=== PATIENT | male | born 1945 | race Caucasian/White ===

== ENCOUNTER 2020-01-27 09:23 | Day surgery (SDC) | payer MEDICARE ==
[2020-01-26 15:51] LABS: BASOPHILS % (AUTO) 0.6 % (0-1); EOSINOPHILS # (AUTO) 0.1 X10'3 (0-0.9); EOSINOPHILS % (AUTO) 2.1 % (0-6); HEMATOCRIT 44.9 % (42.0-52.0); HEMOGLOBIN 14.9 g/dl (14.0-17.9); LYMPHOCYTES # (AUTO) 2.2 X10'3 (1.1-4.8); LYMPHOCYTES % (AUTO) 34.6 % (21-51); MEAN CORPUSCULAR HEMOGLOBIN 30.7 PG (27.0-31.0); MEAN CORPUSCULAR HGB CONC 33.3 g/dL (33.0-36.5); MEAN CORPUSCULAR VOLUME 92.3 FL (78-98); MEAN PLATELET VOLUME 9.4 FL (7.4-10.4); MONOCYTES # (AUTO) 0.7 X10'3 (0-0.9); MONOCYTES % (AUTO) 10.6 % (2-12); NEUTROPHILS # (AUTO) 3.3 X10'3 (1.8-7.7); NEUTROPHILS % (AUTO) 52.1 % (42-75); PLATELET COUNT 177 X10'3 (140-440); RED BLOOD COUNT 4.86 X10'6 (4.70-6.10); RED CELL DISTRIBUTION WIDTH 13.7 % (11.5-14.5); WHITE BLOOD COUNT 6.3 X10'3 (4.5-11.0)
[2020-01-26 15:57] LABS: ALBUMIN 3.8 G/DL (3.4-5.0); ANION GAP 8 (8-16); BLOOD UREA NITROGEN 23 MG/DL (7-18); CALCIUM 9.3 MG/DL (8.5-10.1); CHLORIDE 107 MMOL/L (99-107); CREATININE 1.53 MG/DL (0.60-1.10); GLUCOSE 190 MG/DL (70-104); POTASSIUM 4.2 MMOL/L (3.5-5.1); SODIUM 144 MMOL/L (135-145); TOTAL CARBON DIOXIDE 28.6 MMOL/L (24-32); eGFR 45 ML/MIN
[2020-01-26 16:03] LABS: PARTIAL THROMBOPLASTIN TIME 29 SECONDS (22-32)
[~2020-01-27] VITALS: Ht 175.3 cm; Wt 96.3 kg
[2020-01-27] VITALS (12 sets, daily range): BP systolic 108–127; BP diastolic 63–80
[~2020-01-27 09:23] MED LIST: ASPI-611 PO; CARV-50 PO; DICL-194 PO; LANTUS SQ; LISI-643 PO; METF500T PO; ROSU20TA2 PO
[2020-01-27] MEDS ORDERED: acetylcysteine 200 MG/ml 4ml vial PO PRN (09:48)
[2020-01-27] MEDS ORDERED: normal saline 1,000 ML IV SCH (09:50)
[2020-01-27] MEDS ORDERED: diphenhydrAMINE 25mg capsule PO PRN (09:50)
[2020-01-27] MEDS ORDERED: CARV6.253 PO (10:12)
[2020-01-27] MEDS ORDERED: ATOR80TA PO (10:12)
[2020-01-27] MEDS ORDERED: APIX5TAB3 PO (10:12)
[2020-01-27] MEDS ORDERED: midazolam 2 mg/2 ml injection ONE (10:25)
[2020-01-27] MEDS ORDERED: heparin 1,000 UNITS/NS 500ml 500 ML ONE (10:26)
[2020-01-27] MEDS ORDERED: fentaNYL/PF 50MCG/1 ML 2ML syringe ONE (10:26)
[2020-01-27] MEDS ORDERED: iohexol 350MG/ML 100ml bottle IV ONE (10:26)
[2020-01-27] MEDS ORDERED: LIDOcaine 1% (10mg/ml)w/preservative injection 20ml MDV ONE (10:26)
[2020-01-27] MEDS ORDERED: nitroGLYCERIN-Tridil 50MG/D5W 250 ML IV ONE (10:26)
[2020-01-27] MEDS ORDERED: iohexol 350 MG/ML 50ML vial IV ONE ×2 (10:26→11:31)
[2020-01-27] MEDS ORDERED: heparin 1,000unit/ml 10ml vial 10 ML ONE (10:32)
[2020-01-27] MEDS ORDERED: HYDROcodone/acetaminophen 10/325mg tab PO PRN (12:10)
[2020-01-27] MEDS ORDERED: HYDROcodone/acetaminophen 5mg/325mg tablet PO PRN (12:10)
== END 2020-01-27 18:05 | disposition home or self-care (01) ==
LOC: SSTAY O 09:23
PROVIDERS: ATTEND Internal Medicine Cardiovascular Disease
DX: R94.39 Abnormal result of other cardiovascular function study (principal); T82.858A Stenosis of other vascular prosthetic devices, implants and grafts, initial encounter; I25.10 Atherosclerotic heart disease of native coronary artery without angina pectoris; I25.82 Chronic total occlusion of coronary artery; E11.9 Type 2 diabetes mellitus without complications; I10 Essential (primary) hypertension; E78.5 Hyperlipidemia, unspecified; I48.0 Paroxysmal atrial fibrillation; J44.9 Chronic obstructive pulmonary disease, unspecified; E66.9 Obesity, unspecified; Z68.30 Body mass index [BMI] 30.0-30.9, adult; F17.210 Nicotine dependence, cigarettes, uncomplicated; Z95.5 Presence of coronary angioplasty implant and graft; Z79.01 Long term (current) use of anticoagulants; Z79.82 Long term (current) use of aspirin; Z79.899 Other long term (current) drug therapy; Z98.890 Other specified postprocedural states; Z72.89 Other problems related to lifestyle; Z88.8 Allergy status to other drugs, medicaments and biological substances; Z82.49 Family history of ischemic heart disease and other diseases of the circulatory system; Z83.3 Family history of diabetes mellitus; Y83.8 Other surgical procedures as the cause of abnormal reaction of the patient, or of later complication, without mention of misadventure at the time of the procedure; Y92.89 Other specified places as the place of occurrence of the external cause
CPT/HCPCS: 36415; 76937; 80048; 82948; 85025; 85610; 85730; 93005; 93459; 99152; 99153; C1769; C1894; J1644; J2001; J2250; J3010; J7030; Q0163; Q9967; A4620; A6258; C1760; J3490

== ENCOUNTER 2022-03-01 14:29 | Outpatient (CLI) | payer OTHER ==
[~2022-03-01 14:29] MED LIST changes: +APIX5TAB3 PO; +ATOR80TA PO; -CARV-50 PO; +CARV6.253 PO; -DICL-194 PO; -METF500T PO; -ROSU20TA2 PO
== END 2022-03-01 23:59 | disposition home or self-care (01) ==
LOC: CARD DIAG 14:29
PROVIDERS: ATTEND Internal Medicine Cardiovascular Disease
DX: I08.1 Rheumatic disorders of both mitral and tricuspid valves (principal); I48.91 Unspecified atrial fibrillation; Z95.1 Presence of aortocoronary bypass graft; Z95.5 Presence of coronary angioplasty implant and graft
CPT/HCPCS: 93306

== ENCOUNTER 2023-01-04 08:05 | Day surgery (SDC) | payer OTHER ==
[~2023-01-04] VITALS: Ht 172.7 cm; Wt 93.6 kg
[2023-01-04] VITALS (9 sets, daily range): BP systolic 87–118; BP diastolic 48–60
[2023-01-04] MEDS ORDERED: MIDAZolam 1mg/ml 10ml vial IV ONE (08:25)
[2023-01-04] MEDS ORDERED: amiodarone 150mg/dext, iso-os 100 ML IV ONE (08:25)
[2023-01-04] MEDS ORDERED: atropine 0.1mg/ml 10ml syringe IV ONE (08:25)
[2023-01-04] MEDS ORDERED: diphenhydrAMINE 25mg capsule PO ONE (08:25)
[2023-01-04] MEDS ORDERED: LORazepam 0.5 MG tablet PO ONE (08:25)
[2023-01-04] MEDS ORDERED: normal saline 1000ml 1,000 ML IV SCH (08:25)
[2023-01-04] MEDS ORDERED: morphine 10mg/ml inj. IV ONE (08:25)
[2023-01-04] MEDS ORDERED: FURO40TA4 PO (08:39)
[2023-01-04] MEDS ORDERED: METF-900 PO (08:39)
[2023-01-04] MEDS ORDERED: WARF2.5T82 PO (08:39)
[2023-01-04] MEDS ORDERED: AMIO200T61 (09:20)
[2023-01-04 09:32] LABS: BASOPHILS # (AUTO) 0.1 X10'3 (0-0.2); EOSINOPHILS # (AUTO) 0.2 X10'3 (0-0.9); EOSINOPHILS % (AUTO) 2.7 % (0-6); HEMATOCRIT 43.1 % (42.0-52.0); HEMOGLOBIN 14.6 g/dl (14.0-17.9); LYMPHOCYTES # (AUTO) 1.3 X10'3 (1.1-4.8); LYMPHOCYTES % (AUTO) 19.1 % (21-51); MEAN CORPUSCULAR HEMOGLOBIN 31.4 PG (27.0-31.0); MEAN CORPUSCULAR HGB CONC 33.9 g/dL (33.0-36.5); MEAN CORPUSCULAR VOLUME 92.5 FL (78-98); MEAN PLATELET VOLUME 8.9 FL (7.4-10.4); MONOCYTES # (AUTO) 0.7 X10'3 (0-0.9); MONOCYTES % (AUTO) 9.7 % (2-12); NEUTROPHILS # (AUTO) 4.6 X10'3 (1.8-7.7); NEUTROPHILS % (AUTO) 67.5 % (42-75); PLATELET COUNT 128 X10'3 (140-440); RED BLOOD COUNT 4.66 X10'6 (4.70-6.10); RED CELL DISTRIBUTION WIDTH 14.7 % (11.5-14.5); WHITE BLOOD COUNT 6.8 X10'3 (4.5-11.0)
[2023-01-04 09:41] LABS: ALBUMIN 3.8 G/DL (3.4-5.0); ANION GAP 7 (8-16); BLOOD UREA NITROGEN 16 MG/DL (7-18); BUN/CREATININE RATIO 17.6 (10.0-20.0); CALCIUM 9.3 MG/DL (8.5-10.1); CHLORIDE 101 MMOL/L (99-107); CREATININE 0.91 MG/DL (0.60-1.10); GLUCOSE 175 MG/DL (70-104); POTASSIUM 3.7 MMOL/L (3.5-5.1); SODIUM 140 MMOL/L (135-145); TOTAL CARBON DIOXIDE 32.3 MMOL/L (24-32); eGFR 81 ML/MIN
== END 2023-01-04 12:25 | disposition home or self-care (01) ==
LOC: SSTAY O 08:05
PROVIDERS: ATTEND Internal Medicine Cardiovascular Disease
DX: I48.0 Paroxysmal atrial fibrillation (principal); I25.10 Atherosclerotic heart disease of native coronary artery without angina pectoris; I11.0 Hypertensive heart disease with heart failure; I50.30 Unspecified diastolic (congestive) heart failure; E11.9 Type 2 diabetes mellitus without complications; I47.1 Supraventricular tachycardia; I73.9 Peripheral vascular disease, unspecified; J44.9 Chronic obstructive pulmonary disease, unspecified; E78.5 Hyperlipidemia, unspecified; E66.9 Obesity, unspecified; Z68.30 Body mass index [BMI] 30.0-30.9, adult; Z95.1 Presence of aortocoronary bypass graft; Z98.61 Coronary angioplasty status; Z88.4 Allergy status to anesthetic agent; F17.210 Nicotine dependence, cigarettes, uncomplicated; Z72.89 Other problems related to lifestyle; Z79.899 Other long term (current) drug therapy; Z79.4 Long term (current) use of insulin; Z79.01 Long term (current) use of anticoagulants; Z82.49 Family history of ischemic heart disease and other diseases of the circulatory system; Z83.3 Family history of diabetes mellitus
CPT/HCPCS: 36415; 80048; 82948; 85025; 85610; 92960; 93005; J0282; J2250; J2274; J7030; A4620

== ENCOUNTER 2024-01-10 05:52 | Day surgery (SDC) | payer MEDICARE, OTHER ==
[2024-01-06 11:52] LABS: BASOPHILS # (AUTO) 0.1 X10'3 (0-0.2); BASOPHILS % (AUTO) 1.1 % (0-1); EOSINOPHILS # (AUTO) 0.2 X10'3 (0-0.9); EOSINOPHILS % (AUTO) 3.3 % (0-6); LYMPHOCYTES # (AUTO) 1.4 X10'3 (1.1-4.8); LYMPHOCYTES % (AUTO) 20.1 % (21-51); MEAN CORPUSCULAR HEMOGLOBIN 27.7 PG (27.0-31.0); MEAN CORPUSCULAR HGB CONC 31.9 g/dL (33.0-36.5); MEAN PLATELET VOLUME 7.1 FL (7.4-10.4); MONOCYTES # (AUTO) 0.8 X10'3 (0-0.9); MONOCYTES % (AUTO) 11.3 % (2-12); NEUTROPHILS # (AUTO) 4.3 X10'3 (1.8-7.7); NEUTROPHILS % (AUTO) 64.2 % (42-75); PRE OP HEMATOCRIT 31.2 % (42.0-52.0); PRE OP PLATELET COUNT 193 X10'3 (140-440); PRE OP WHITE BLOOD COUNT 6.7 10'3 (4.8-10.8); RED BLOOD COUNT 3.59 X10'6 (4.70-6.10); RED CELL DISTRIBUTION WIDTH 18.7 % (11.5-14.5)
[2024-01-06 11:59] LABS: PRE OP HEMOGLOBIN 9.9 g/dL (14.0-17.9)
[2024-01-06 12:09] LABS: ALBUMIN 3.1 G/DL (3.4-5.0); ALBUMIN/GLOBULIN RATIO 0.8 (1.1-1.5); ALKALINE PHOSPHATASE 91 IU/L (46-116); BLOOD UREA NITROGEN 19 MG/DL (7-18); BUN/CREATININE RATIO 26.8 (10.0-20.0); CALCIUM 8.6 MG/DL (8.5-10.1); CHLORIDE 102 MMOL/L (99-107); CREATININE 0.71 MG/DL (0.60-1.10); PRE OP ALT 28 U/L (30-65); PRE OP ANION GAP 6 (8-16); PRE OP AST 32 U/L (10-37); PRE OP BILIRUB, TOTAL 1.4 MG/DL (0.0-1.0); PRE OP GLUCOSE 116 MG/DL (70-104); PRE OP POTASSIUM 3.8 MMOL/L (3.4-5.1); PRE OP SODIUM 142 MMOL/L (135-145); TOTAL CARBON DIOXIDE 33.7 MMOL/L (24-32); TOTAL PROTEIN 7.2 G/DL (6.4-8.2); eGFR > 90 ML/MIN
[2024-01-09] MEDS: DOCUMENT DATE & TIME OF BETA-BLOCKER PO ONE (08:00)
[~2024-01-10] VITALS: Ht 172.7 cm; Wt 88.9 kg
[2024-01-10] VITALS (16 sets, daily range): BP systolic 88–137; BP diastolic 49–70; PULSE 79–97; RESP 14–22; TEMP 96.9; O2SAT 90–97
[~2024-01-10 05:52] MED LIST changes: -ASPI-611 PO; +DAPA10TA PO; +FURO40TA4 PO; +INSU100V11 SQ; -LISI-643 PO; +METF-900 PO; +MIDO2.5T14 PO; +POTA-206
[2024-01-10] MEDS: famotidine 20mg tablet PO ONE (06:22)
[2024-01-10] MEDS: ringers solution, lacted 1,000 ML IV SCH (06:23)
[2024-01-10] MEDS ORDERED: LIDOcaine 2% (20mg/ml) 5ml vial ONE (07:19)
[2024-01-10] MEDS ORDERED: acetaminophen 1,000mg/100ml IV 100 ML IV ONE (07:19)
[2024-01-10] MEDS ORDERED: ondansetron/PF 4mg/2ml inj ONE (07:19)
[2024-01-10] MEDS ORDERED: rocuronium 10mg/ml inj IV ONE (07:19)
[2024-01-10] MEDS ORDERED: dexamethasone sod phosphate 4mg/ml inj. ONE (07:19)
[2024-01-10] MEDS ORDERED: propofol inj 20 ML IV ONE (07:19)
[2024-01-10] MEDS ORDERED: ondansetron/PF 4mg/2ml inj IV PRN (07:30)
[2024-01-10] MEDS ORDERED: morphine 4 MG/ML inj SYRINge IV PRN (07:30)
[2024-01-10] MEDS ORDERED: labetalol 20mg/4ml (5mg/ml) syringe IV PRN (07:30)
[2024-01-10] MEDS ORDERED: ringers solution, lacted 1,000 ML IV SCH (07:30)
[2024-01-10] MEDS ORDERED: morphine 2 MG/ML inj. syringe IV PRN (07:30)
[2024-01-10] MEDS ORDERED: hydrALAZINE 20mg/ml inj. IV PRN (07:30)
[2024-01-10] MEDS ORDERED: meperidine/PF 25mg/ml syringe IV PRN ×2 (07:30)
[2024-01-10] MEDS ORDERED: desflurane 240ml liquid inh. IH ONE (07:40)
[2024-01-10] MEDS ORDERED: neostigmine methylsulfate 1 MG/ML 10ml vial ONE (08:20)
[2024-01-10] MEDS ORDERED: glycopyrrolate 0.2mg/ml inj ONE (08:20)
[2024-01-10] MEDS ORDERED: phenylephrine 10mg/ml inj. -priapism dosing ONE (08:33)
[2024-01-10 10:31] LABS: ABG BASE EXCESS 3.6 mmol/L (-2.0-2.0); ABG HCO3 30.7 mmol/L (22.0-26.0); ABG PCO2 (T) 59.4 mmHg (35.0-48.0); ABG PH (T) 7.329 (7.340-7.440); ABG PO2 (T) 70.6 mmHg (75.0-100.0); ALLEN'S TEST POSITIVE; FHHb 6.9 % (0.0-5.0); FMetHb 0.3 % (0.0-1.5); FO2Hb 91.8 % (94-97); MODE MASK - BIPAP; PATIENT TEMPERATURE 36.4; RESPIRATORY RATE 12 b/min; TIDAL VOLUME 535 mL; TOTAL HEMOGLOBIN 9.9 G/dl (14.0-17.9)
== END 2024-01-10 11:10 | disposition home or self-care (01) ==
LOC: PAS 05:52
PROVIDERS: ATTEND Internal Medicine Critical Care Medicine
DX: R91.8 Other nonspecific abnormal finding of lung field (principal); I10 Essential (primary) hypertension; E11.9 Type 2 diabetes mellitus without complications; I25.10 Atherosclerotic heart disease of native coronary artery without angina pectoris; I48.91 Unspecified atrial fibrillation; E78.5 Hyperlipidemia, unspecified; G47.30 Sleep apnea, unspecified; I25.2 Old myocardial infarction; Z85.828 Personal history of other malignant neoplasm of skin; Z79.01 Long term (current) use of anticoagulants; Z79.84 Long term (current) use of oral hypoglycemic drugs; Z79.899 Other long term (current) drug therapy; Z98.890 Other specified postprocedural states
CPT/HCPCS: 31627; 31629; 31653; 36415; 36600; 71045; 71250; 80053; 82803; 82948; 85018; 85025; 94660; J0131; J1100; J2371; J2405; J2704; J2710; J3490; J7120; Z7506; Z7508; Z7512; 31622; 31624; 31625; 31626; 31628; 31635; 31654; 94760; A4615; A4618; J2370

== ENCOUNTER 2024-03-30 20:35 | Emergency (ER) | payer MEDICARE ==
[~2024-03-30] VITALS: Ht 177.8 cm; Wt 90.9 kg
[2024-03-30] MEDS: acetaminophen 325mg tablet PO ONE (21:56)
[2024-03-30 22:14] VITALS: BP 102/56; PULSE 81; RESP 17; TEMP 98.2; O2SAT 100
== END 2024-03-30 22:16 | disposition home or self-care (01) ==
LOC: ER 20:35
DX: M25.561 Pain in right knee (principal); M79.89 Other specified soft tissue disorders; Z79.899 Other long term (current) drug therapy; Z79.4 Long term (current) use of insulin; Z79.84 Long term (current) use of oral hypoglycemic drugs
CPT/HCPCS: 73564; 99284